=== PATIENT | female | born 1985 | race Caucasian/White ===

== ENCOUNTER 2016-09-22 08:32 | Emergency (ER) | payer SELFPAY ==
--- NOTE | 2016-09-22 10:24 | ER Document Report ---
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 Then both of her arms started to shake. 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 While she was waiting in the emergency department waiting room the chest pain became constant and was told retrosternal. No nausea or vomiting. She developed left arm numbness. No history of reflux. TRAVEL OUTSIDE OF THE [place] IN LAST 30 DAYS: No - Related Data Allergies/Adverse Reactions: No Known Allergies Allergy (Verified 09/22/16 08:41) Past Medical History - General Information source: Patient - Social History Smoking Status: Current Some Day Smoker Chew tobacco use (# tins/day): No Frequency of alcohol use: None Drug Abuse: None Lives with: Spouse/Significant other Family History: CVA, DM, Hyperlipidemia, Hypertension, Thyroid Disfunction. denies: CAD Patient has suicidal ideation: No Patient has homicidal ideation: No Renal/ Medical History: Denies: Hx Peritoneal Dialysis GI Medical History: Reports: Hx Diverticulitis Musculoskeltal Medical History: Reports Hx Arthritis, Reports Hx Musculoskeletal Deformity, Reports Hx Musculoskeletal Trauma Psychiatric Medical History: Reports: Hx Anxiety, Hx Depression Traumatic Medical History: Reports: Hx Fractures - ribs Past Surgical History: Reports: Other - scalp surgery - Immunizations Immunizations up to date: No Hx Diphtheria, Pertussis, Tetanus Vaccination: No Review of Systems - Review of Systems Constitutional: No symptoms reported EENT: No symptoms reported Cardiovascular: See HPI Respiratory: See HPI Gastrointestinal: No symptoms reported Genitourinary: No symptoms reported Female Genitourinary: No symptoms reported Musculoskeletal: No symptoms reported Skin: No symptoms reported Hematologic/Lymphatic: No symptoms reported Neurological/Psychological: No symptoms reported Physical Exam - Vital signs Vitals: Temp Pulse Resp BP Pulse Ox 97.9 F 79 14 114/69 99 09/22/16 08:41 09/22/16 08:41 09/22/16 08:41 09/22/16 08:41 09/22/16 08:41 Interpretation: Normal - General General appearance: Appears well, Alert In distress: None Notes: obese - HEENT Head: Normocephalic, Atraumatic Eyes: Normal Conjunctiva: Normal Pupils: PERRL Neck: Supple. No: Lymphadenopathy - Respiratory Respiratory status: No respiratory distress Chest status: Nontender Breath sounds: Normal Chest palpation: Normal - Cardiovascular Rhythm: Regular Heart sounds: Normal auscultation Murmur: No - Abdominal Inspection: Normal Distension: No distension Bowel sounds: Normal Tenderness: Tender - Epigastrium( brought tears to her eyes) and right upper quadrant Organomegaly: No organomegaly - Back Back: Normal, Nontender. No: CVA tenderness - Extremities General upper extremity: Normal inspection, Nontender, Normal color, Normal ROM , Normal temperature General lower extremity: Normal inspection, Nontender, Normal color, Normal ROM , Normal temperature, Normal weight bearing. No: Divina's sign - Neurological Neuro grossly intact: Yes Cognition: Normal Orientation: AAOx4 Sabrina Coma Scale Eye Opening: Spontaneous [place] Coma Scale Verbal: Oriented [place] Coma Scale Motor: Obeys Commands Sabrina Coma Scale Total: 15 Speech: Normal Motor strength normal: LUE, RUE, LLE, RLE Sensory: Normal - Psychological Associated symptoms: Normal affect, Normal mood - Skin Skin Temperature: Warm Skin Moisture: Dry Skin Color: Normal Skin irregularity: negative: Rash Course - Re-evaluation Re-evalutation: 09/22/16 13:[address] [place] [address] Franco patient can go home. The GI cocktail relieved the epigastric abdominal pain and the chest pain. Dr. Franco and I do not believe this is cardiac in nature. She can follow-up with the family practice doctor. Abdomen is nontender at this time. Labs are negative. KG normal sinus rhythm chest x- ray is negative - Vital Signs Vital signs: Temp Pulse Resp BP Pulse Ox 97.9 F 79 14 114/69 99 09/22/16 08:41 09/22/16 08:41 09/22/16 08:41 09/22/16 08:41 09/22/16 08:41 - Laboratory Result Diagrams: 09/22/16 10:44 09/22/16 10:44 Laboratory results interpreted by me: 09/22/16 09/22/16 09/22/16 10:44 10:44 10:44 WBC 10.8 H Total Protein 8.3 H Urine Blood MODERATE H - EKG Interpretation by Me EKG shows normal: Sinus rhythm Rate: Normal Discharge - Discharge Clinical Impression: chest pain, epigastric abdominal pain, left arm paresthesia Condition: Good Disposition: HOME, SELF-CARE Instructions: Family Physicians / Practices, Prilosec (Acid Pump Inhibitor) ( [facility]), Evaluation of Upper Abdominal Pain ([facility]), Chest Pain of Unclear Cause ([facility] ) Additional Instructions: Return to the emergency room if worse The family practice doctor for follow-up Take [id number] Prilosec 20 mg twice a day Low-fat diet Please complete the patient satisfaction survey if you get one, and return it.. If you do not receive a survey, then you can go to the [facility] website, [email or web address] and place your comments about your very good care. Thank you very much. It was a pleasure being your medical provider today. Forms: Return to Work
[2016-09-22] MEDS ORDERED: LIDOCAINE 2% VISCOUS SOLN 20 ML UDCUP PO ONE (10:27)
[2016-09-22] MEDS ORDERED: MAG HYDROX/AL HYDROX/SIMETH SUSP 30 ML UDCUP PO ONE (10:27)
[2016-09-22 10:59] LABS: ABSOLUTE BASOPHILS # (AUTO) 0.1 10^3/uL (0.0-0.2); ABSOLUTE EOSINOPHILS # (AUTO) 0.3 10^3/uL (0.0-0.6); ABSOLUTE LYMPHOCYTES (AUTO) 3.5 10^3/uL (0.5-4.7); ABSOLUTE MONOCYTES (AUTO) 0.9 10^3/uL (0.1-1.4); ABSOLUTE NEUT (AUTO) 5.9 10^3/uL (1.7-8.2); BASOPHILS % (AUTO) 1.3 % (0-2); EOSINOPHILS % (AUTO) 2.7 % (0-6); HEMATOCRIT 36.6 % (36.0-47.0); HEMOGLOBIN 12.6 g/dL (12.0-15.5); HGB HCT DIFFERENCE 1.2; LYMPHOCYTES % (AUTO) 32.2 % (13-45); MEAN CORPUSCULAR HEMOGLOBIN 30.6 pg (27.0-33.4); MEAN CORPUSCULAR HGB CONC 34.3 g/dL (32.0-36.0); MEAN CORPUSCULAR VOLUME 89 fl (80-97); MONOCYTES % (AUTO) 8.8 % (3-13); RED BLOOD COUNT 4.11 10^6/uL (3.72-5.28); RED CELL DISTRIBUTION WIDTH 13.9 % (11.5-14.0); WHITE BLOOD COUNT 10.8 10^3/uL (4.0-10.5)
[2016-09-22 11:06] LABS: APPEARANCE,URINE SLIGHTLY-CLOUDY; BILIRUBIN,URINE NEGATIVE (NEGATIVE); GLUCOSE, URINE NEGATIVE (NEGATIVE); KETONES,URINE NEGATIVE (NEGATIVE); LEUKOCYTE ESTERASE,URINE NEGATIVE (NEGATIVE); NITRITE,URINE NEGATIVE (NEGATIVE); PROTEIN,URINE NEGATIVE (NEGATIVE); URINE SPECIFIC GRAVITY 1.025; UROBILINOGEN,URINE NEGATIVE mg/dL (<2.0)
[2016-09-22 11:16] LABS: ALANINE AMINOTRANSFERASE 26 U/L (9-52); ALBUMIN 4.3 g/dL (3.5-5.0); ALKALINE PHOSPHATASE 81 U/L (38-126); ANION GAP 11 (5-19); ASPARTATE AMINO TRANSFERASE 20 U/L (14-36); BILIRUBIN,DIRECT 0.2 mg/dL (0.0-0.4); BILIRUBIN,TOTAL 0.4 mg/dL (0.2-1.3); BLOOD UREA NITROGEN 11 mg/dL (7-20); CALCIUM 10.2 mg/dL (8.4-10.2); CARBON DIOXIDE 23 mmol/L (22-30); CHLORIDE 107 mmol/L (98-107); CREATININE RESULT 0.56 mg/dL (0.52-1.25); GLUCOSE 94 mg/dL (75-110); LIPASE 80.9 U/L (23-300); POTASSIUM 4.6 mmol/L (3.6-5.0); SODIUM 141.1 mmol/L (137-145); TOTAL PROTEIN 8.3 g/dL (6.3-8.2)
[2016-09-22 11:18] LABS: URINE BARBITURATES SCREEN NEGATIVE; URINE METHADONE SCREEN NEGATIVE; URINE OPIATES LOW NEGATIVE; URINE PHENCYCLIDINE SCREEN NEGATIVE
--- NOTE | 2016-09-22 13:14 | EKG REPORT ---
SEVERITY:- NORMAL ECG - SINUS RHYTHM : Confirmed by: Lane Peterson MD 22-Sep-2016 13:14:32
[2016-09-22 13:47] VITALS: BP 120/71
== END 2016-09-22 13:59 | disposition home or self-care (01) ==
LOC: ER 08:32
DX: R07.9 Chest pain, unspecified (principal); R10.13 Epigastric pain; R20.0 Anesthesia of skin; R06.02 Shortness of breath; R10.811 Right upper quadrant abdominal tenderness; R10.816 Epigastric abdominal tenderness; F17.200 Nicotine dependence, unspecified, uncomplicated; Z79.3 Long term (current) use of hormonal contraceptives
CPT/HCPCS: 93005; 99285; 36415; 87086; 83690; 84703; 85025; 80053; 81001; 80307; 71020; 93010; J3490

== ENCOUNTER 2016-10-28 17:04 | Emergency (ER) | payer BC ==
[2016-10-28] MEDS ORDERED: KETOROLAC TROMETHAMINE 60 MG/2 ML SDV IM ONE (19:19)
--- NOTE | 2016-10-28 19:19 | ER Document Report ---
ED General - General Mode of Arrival: Ambulatory Information source: Patient TRAVEL OUTSIDE OF THE [place] IN LAST 30 DAYS: No - HPI Onset: Other - Refer to history of present illness note Similar symptoms previously: No Recently seen / treated by doctor: No - General Chief Complaint: Diarrhea Stated Complaint: DIARRHEA, BACK PAIN Notes: Patient is a 31-year-old female patient emergency department for headache symptoms, nausea, diarrhea, and low back pain. Patient states that her symptoms onset last night. Patient denies any recent injuries or trauma to her back. Patient denies any steroids use. Patient states that she has a history of chronic back pain, but has not seen a physician for this. Patient states that she is on control and taking Tylenol for the pain with no relief. Patient states her last menstrual period ended today. Patient denies any vaginal discharge or bleeding, dysuria or history of kidney stones. Patient has no known allergies. Patient does not have a primary care physician. (GORDON KAUFMAN) - Related Data Allergies/Adverse Reactions: No Known Allergies Allergy (Verified 10/28/16 17:19) Past Medical History - General Information source: Patient - Social History Smoking Status: Current Every Day Smoker Chew tobacco use (# tins/day): No Frequency of alcohol use: None Drug Abuse: None Family History: CVA, DM, Hyperlipidemia, Hypertension, Thyroid Disfunction Patient has suicidal ideation: No Patient has homicidal ideation: No GI Medical History: Reports: Hx Diverticulitis Musculoskeltal Medical History: Reports Hx Arthritis, Reports Hx Musculoskeletal Deformity, Reports Hx Musculoskeletal Trauma Psychiatric Medical History: Reports: Hx Anxiety, Hx Depression Traumatic Medical History: Reports: Hx Fractures - ribs Past Surgical History: Reports: Other - scalp surgery - Immunizations Immunizations up to date: No Hx Diphtheria, Pertussis, Tetanus Vaccination: No Review of Systems - Review of Systems Constitutional: No symptoms reported EENT: See HPI Cardiovascular: No symptoms reported Respiratory: No symptoms reported Gastrointestinal: See HPI, Diarrhea, Nausea Genitourinary: No symptoms reported Female Genitourinary: No symptoms reported Musculoskeletal: See HPI, Back pain Skin: No symptoms reported Hematologic/Lymphatic: No symptoms reported Neurological/Psychological: No symptoms reported -: Yes All other systems reviewed and negative Physical Exam - Vital signs Interpretation: Normal - General General appearance: Appears well, Alert In distress: Mild - HEENT Head: Normocephalic, Atraumatic Eyes: Normal Pupils: PERRL Mucous membranes: Moist - Respiratory Respiratory status: No respiratory distress Chest status: Nontender Breath sounds: Normal Chest palpation: Normal - Cardiovascular Rhythm: Regular Heart sounds: Normal auscultation Murmur: No - Abdominal Inspection: Normal Distension: No distension Bowel sounds: Normal Tenderness: Nontender Organomegaly: No organomegaly - Back Back: Normal, Tender - paralumbar and thoracic tenderness with spasm - Extremities General upper extremity: Normal inspection, Normal ROM, Normal strength General lower extremity: Normal inspection, Normal ROM, Normal strength - Neurological Neuro grossly intact: Yes Cognition: Normal Orientation: AAOx4 Sabrina Coma Scale Eye Opening: Spontaneous [place] Coma Scale Verbal: Oriented [place] Coma Scale Motor: Obeys Commands [place] Coma Scale Total: 15 Speech: Normal - Psychological Associated symptoms: Normal affect, Normal mood - Skin Skin Temperature: Warm Skin Moisture: Dry Course - Re-evaluation Re-evalutation: 10/28/16 19:20 Patient presents emergency Department with a chief complaint of nonbloody diarrhea that started last night low back pain. Patient has a history of chronic long-standing chronic back pain for which she currently does not see a primary care physician she's never had an MRI diagnosis her surgery. She says she has back pain every day of her life. She describes his paralumbar not midline no acute numbness tingling weakness loss of bowel or bladder function and no recent injury. She is ambulatory on arrival. Denies a chance of being denies any burning with urination blood in the urinate pelvic pain or vaginal discharge. No fevers chills vomiting or abdominal pain. On examination well-appearing nontoxic little tachycardic on examination HEENT heart lungs are normal. Abdomen is soft no tenderness guarding rebound rigidity she has no midline cervical thoracic or lumbar tenderness Paralumbar muscular skeletal tenderness and spasm bilaterally negative bilateral straight leg raise test. Pulses sensation motor intact no abnormal reflexes or decreased strength. Patient is ambulatory upon her heels and toes without any difficulty. Going give her shot of Toradol check her urine. (SELENA TORRE) - Vital Signs Vital signs: Temp Pulse Resp BP Pulse Ox 97.9 F 77 20 126/77 H 98 10/28/16 21:10 10/28/16 21:10 10/28/16 21:10 10/28/16 21:10 10/28/16 21:10 - Laboratory Laboratory results interpreted by me: 10/28/16 19:35 Urine Protein 30 H Urine Blood LARGE H Discharge - Discharge Clinical Impression: Viral syndrome, Elevated blood pressure reading Low back pain Qualifiers: Chronicity: unspecified Back pain laterality: bilateral Sciatica presence: without sciatica Qualified Code(s): M54.5 - Low back pain Condition: Stable Disposition: HOME, SELF-CARE Instructions: Viral Syndrome ([facility]) Additional Instructions: HIGH BLOOD PRESSURE, NOT TREAT: When your blood pressure was taken today it was elevated. We do not think you need to have your blood pressure treated today. Sometimes, stress or illness causes a temporary elevation of your blood pressure. We suggest that you get your blood pressure measured again during the next few days to see if this elevated blood pressure is more than a temporary abnormality. If your blood pressure is greater than 150/90 on each occasion, you must have treatment. Some simple things you can do to help are: If you have blood pressure medicine but aren't using it regularly, start taking it again. Get some aerobic exercise for at least 20 minutes on a daily basis. (See your doctor before beginning a new exercise program.) Eat a low-fat diet. Lose excess weight. Avoid salty foods and avoid adding salt to any of the foods you eat. Avoid diet pills, decongestants, "energizing" herbs, and other medicines that elevate blood pressure. If left untreated, hypertension greatly enhances your risk for developing heart disease and strokes. Please don't ignore this problem. LOW BACK PAIN: Three out of every four people will have an episode of disabling back pain during their lifetime. Most commonly the pain is due to straining of the muscles and ligaments in the low back. Usual treatment includes: (1) Rest on a firm surface. Avoid lying on your stomach. (2) Ice pack the painful area. After a few days, gentle heat may be used intermittently to relax the area, or ice packs can be continued. (3) Medication may be needed -- muscle relaxers and antiinflammatory medicines are commonly used. (4) As the back improves, exercises are prescribed to strengthen the back and abdominal muscles. Your doctor will advise you on the proper care for your back at each stage in your recovery. You may be better in a few days -- or healing may take several weeks. If new symptoms of a "herniated disc" (radiation of pain, numbness, or tingling down the back of the leg or weakness in the leg) occur, you should be re-examined. Further testing may be necessary. FOLLOW-UP CARE: If you have been referred to a physician for follow-up care, call the physician s office for an appointment as you were instructed or within the next two days. If you experience worsening or a significant change in your symptoms, notify the physician immediately or return to the Emergency Department at any time for re-evaluation. Forms: Return to Work Scribe Attestation: 10/31/16 03:06 i personally performed the services described in the documentation, reviewed the documentation recorded by the scribe in my presence and it accurately and completely records my words and actions (SELENA TORRE) Scribe Documentation - Scribe Written by Rupali:: Gordon Kaufman 10/28/16 19:50 acting as scribe for :: Ruben
[2016-10-28 19:51] LABS: APPEARANCE,URINE SLIGHTLY-CLOUDY; BILIRUBIN,URINE NEGATIVE (NEGATIVE); GLUCOSE, URINE NEGATIVE (NEGATIVE); KETONES,URINE NEGATIVE (NEGATIVE); LEUKOCYTE ESTERASE,URINE NEGATIVE (NEGATIVE); NITRITE,URINE NEGATIVE (NEGATIVE); PROTEIN,URINE 30 mg/dL (NEGATIVE); URINE SPECIFIC GRAVITY 1.025; UROBILINOGEN,URINE NEGATIVE mg/dL (<2.0)
[2016-10-28 20:01] LABS: URINE BARBITURATES SCREEN NEGATIVE; URINE METHADONE SCREEN NEGATIVE; URINE OPIATES LOW NEGATIVE; URINE PHENCYCLIDINE SCREEN NEGATIVE
--- NOTE | 2016-10-28 20:40 | ER Document Report ---
ED General - General Chief Complaint: Diarrhea Stated Complaint: DIARRHEA, BACK PAIN Mode of Arrival: Ambulatory Information source: Patient Notes: This is a 31-year-old female who presents to the ER for concern of diarrhea that started yesterday. She states that she has had upper respiratory symptoms including mild congestion and dry cough for 2 days. No fevers or chills. She developed one episode of diarrhea yesterday and one episode today. She works at [employer] and she was told to come get a note for work. She denies any abdominal pain. She has had no fevers or chills. 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 She also states that she has low back pain today, across her lower back. No radiation. No weakness, paresthesias, bowel or bladder symptoms. TRAVEL OUTSIDE OF THE [place] IN LAST 30 DAYS: No - Related Data Allergies/Adverse Reactions: No Known Allergies Allergy (Verified 10/28/16 17:19) Past Medical History - General Information source: Patient - Social History Smoking Status: Current Every Day Smoker Chew tobacco use (# tins/day): No Frequency of alcohol use: None Drug Abuse: None Family History: CVA, DM, Hyperlipidemia, Hypertension, Thyroid Disfunction Patient has suicidal ideation: No Patient has homicidal ideation: No Renal/ Medical History: Denies: Hx Peritoneal Dialysis GI Medical History: Reports: Hx Diverticulitis Musculoskeltal Medical History: Reports Hx Arthritis, Reports Hx Musculoskeletal Deformity, Reports Hx Musculoskeletal Trauma Psychiatric Medical History: Reports: Hx Anxiety, Hx Depression Traumatic Medical History: Reports: Hx Fractures - ribs Past Surgical History: Reports: Other - scalp surgery - Immunizations Immunizations up to date: No Hx Diphtheria, Pertussis, Tetanus Vaccination: No Review of Systems - Review of Systems Notes: REVIEW OF SYSTEMS: CONSTITUTIONAL : Denies fever, chills, or sweats. Denies recent illness. EENT: Denies eye, ear, throat, or mouth pain or symptoms. Denies nasal or sinus congestion. CARDIOVASCULAR: Denies chest pain. RESPIRATORY: URI as per history of present illnes. Denies shortness of breath, difficulty breathing, or wheezing. GASTROINTESTINAL: Denies abdominal pain. Denies nausea, vomiting. Diarrhea as per history of present illness GENITOURINARY: Denies difficulty urinating, painful urination, burning, frequency, or blood in urine. FEMALE GENITOURINARY: Denies vaginal bleeding, abnormal or irregular periods. LMP: ended yesterday MUSCULOSKELETAL: Denies neck or back pain or joint pain or swelling. SKIN: Denies rash or skin lesions. HEMATOLOGIC : Denies easy bruising or bleeding. LYMPHATIC: Denies swollen, enlarged glands. NEUROLOGICAL: Denies altered mental status or loss of consciousness. Denies headache. PSYCHIATRIC: Denies anxiety or stress or depression. ALL OTHER SYSTEMS REVIEWED AND NEGATIVE. Physical Exam - Vital signs Vitals: Temp Pulse Resp BP Pulse Ox 98.5 F 118 H 18 144/90 H 95 10/28/16 17:19 10/28/16 17:19 10/28/16 17:19 10/28/16 17:19 10/28/16 17:19 - Notes Notes: PHYSICAL EXAMINATION: GENERAL: Very Well-appearing, obese female, pleasant and conversant, and in no acute distress. HEAD: Atraumatic, normocephalic. EYES: Pupils equal round and reactive to light, extraocular movements intact, sclera anicteric, conjunctiva are normal. ENT: nares patent, oropharynx clear without exudates. Moist mucous membranes. NECK: Normal range of motion, supple without lymphadenopathy LUNGS: Breath sounds clear to auscultation bilaterally and equal. No wheezes rales or rhonchi. HEART: Regular rate and rhythm without murmurs ABDOMEN: Soft, nontender, normoactive bowel sounds. No guarding, no rebound. No masses appreciated. EXTREMITIES: Normal range of motion, no pitting or edema. No cyanosis. BACK: no midline vertebral TTP, mild bilateral paralumbar tenderness to palpation. No CVA tenderness to palpation NEUROLOGICAL: Cranial nerves grossly intact. Normal speech, normal gait. Normal sensory, motor, and reflex exams. PSYCH: Normal mood, normal affect. SKIN: Warm, Dry, normal turgor, no rashes or lesions noted. Course - Re-evaluation Re-evalutation: 10/28/16 20:44 Patient appears well. I suspect that the microscopic hematuria is secondary to the fact that her period ended yesterday. She does not present with symptoms consistent with renal colic or ureterolithiasis. - Vital Signs Vital signs: Temp Pulse Resp BP Pulse Ox 98.5 F 118 H 18 144/90 H 95 10/28/16 17:19 10/28/16 17:19 10/28/16 17:19 10/28/16 17:19 10/28/16 17:19 - Laboratory Laboratory results interpreted by me: 10/28/16 19:35 Urine Protein 30 H Urine Blood LARGE H Discharge - Discharge Clinical Impression: Viral syndrome, Elevated blood pressure reading Low back pain Qualifiers: Chronicity: unspecified Back pain laterality: bilateral Sciatica presence: without sciatica Qualified Code(s): M54.5 - Low back pain Condition: Stable Disposition: HOME, SELF-CARE Instructions: Viral Syndrome ([facility]) Additional Instructions: HIGH BLOOD PRESSURE, NOT TREAT: When your blood pressure was taken today it was elevated. We do not think you need to have your blood pressure treated today. Sometimes, stress or illness causes a temporary elevation of your blood pressure. We suggest that you get your blood pressure measured again during the next few days to see if this elevated blood pressure is more than a temporary abnormality. If your blood pressure is greater than 150/90 on each occasion, you must have treatment. Some simple things you can do to help are: If you have blood pressure medicine but aren't using it regularly, start taking it again. Get some aerobic exercise for at least 20 minutes on a daily basis. (See your doctor before beginning a new exercise program.) Eat a low-fat diet. Lose excess weight. Avoid salty foods and avoid adding salt to any of the foods you eat. Avoid diet pills, decongestants, "energizing" herbs, and other medicines that elevate blood pressure. If left untreated, hypertension greatly enhances your risk for developing heart disease and strokes. Please don't ignore this problem. LOW BACK PAIN: Three out of every four people will have an episode of disabling back pain during their lifetime. Most commonly the pain is due to straining of the muscles and ligaments in the low back. Usual treatment includes: (1) Rest on a firm surface. Avoid lying on your stomach. (2) Ice pack the painful area. After a few days, gentle heat may be used intermittently to relax the area, or ice packs can be continued. (3) Medication may be needed -- muscle relaxers and antiinflammatory medicines are commonly used. (4) As the back improves, exercises are prescribed to strengthen the back and abdominal muscles. Your doctor will advise you on the proper care for your back at each stage in your recovery. You may be better in a few days -- or healing may take several weeks. If new symptoms of a "herniated disc" (radiation of pain, numbness, or tingling down the back of the leg or weakness in the leg) occur, you should be re-examined. Further testing may be necessary. FOLLOW-UP CARE: If you have been referred to a physician for follow-up care, call the physician s office for an appointment as you were instructed or within the next two days. If you experience worsening or a significant change in your symptoms, notify the physician immediately or return to the Emergency Department at any time for re-evaluation. Forms: Return to Work
[2016-10-28 21:20] VITALS: BP 126/77
== END 2016-10-28 21:15 | disposition home or self-care (01) ==
LOC: ER 17:04
DX: M54.5 Low back pain (principal); B34.9 Viral infection, unspecified; R19.7 Diarrhea, unspecified; R05 Cough; R03.0 Elevated blood-pressure reading, without diagnosis of hypertension; E66.9 Obesity, unspecified; Z68.38 Body mass index [BMI] 38.0-38.9, adult; F17.200 Nicotine dependence, unspecified, uncomplicated; Z87.19 Personal history of other diseases of the digestive system
CPT/HCPCS: 99284; 96372; 81001; 80307; J1885

== ENCOUNTER 2016-11-30 17:47 | Emergency (ER) | payer BC ==
[2016-11-30] MEDS ORDERED: IBUPROFEN 800 MG TABLET PO ONE (20:01)
[2016-11-30] MEDS ORDERED: FAMOTIDINE 20 MG TABLET PO ONE (20:01)
[2016-11-30] MEDS ORDERED: PREDNISONE 20 MG TABLET PO ONE (20:01)
--- NOTE | 2016-11-30 20:07 | ER Document Report ---
ED Skin Rash/Insect Bite/Abscs - General Chief Complaint: Skin Problem Stated Complaint: SKIN PROBLEM Time Seen by Provider: 11/30/16 19:54 Mode of Arrival: Ambulatory Information source: Patient Notes: 31-year-old female presents to ED for chronic back pain that has been hurting today and hives to bilateral arms and legs. States she took some allergy pills that did not help. TRAVEL OUTSIDE OF THE [place] IN LAST 30 DAYS: No - HPI Patient complains to provider of: Skin rash/lesion, Other - Low back pain Onset: This morning Onset/Duration: Intermittent Quality of pain: Other - Spasms in her back Severity: Severe Pain Level: 5 Skin Character: Rash Quality of rash: Itchy Identify cause: No Exacerbated by: Denies Relieved by: Denies Similar symptoms previously: Yes Recently seen / treated by doctor: No - Related Data Allergies/Adverse Reactions: No Known Allergies Allergy (Verified 10/28/16 17:19) Past Medical History - General Information source: Patient - Social History Smoking Status: Current Every Day Smoker Cigarette use (# per day): Yes - Half-pack per day Chew tobacco use (# tins/day): No Smoking Education Provided: Yes - Less than 2 minutes Frequency of alcohol use: Occasional Drug Abuse: None Occupation: [employer] Lives with: Spouse/Significant other Family History: CAD, CVA, DM, Hyperlipidemia, Hypertension, Malignancy, Thyroid Disfunction Patient has suicidal ideation: No Patient has homicidal ideation: No - Past Medical History Cardiac Medical History: Reports: None Pulmonary Medical History: Reports: Hx Asthma - As a child none now EENT Medical History: Reports: None Neurological Medical History: Reports: None Endocrine Medical History: Reports: None Renal/ Medical History: Reports: None Malignancy Medical History: Reports: None GI Medical History: Reports: Hx Diverticulitis Musculoskeltal Medical History: Reports Hx Arthritis, Reports Hx Musculoskeletal Deformity, Reports Hx Musculoskeletal Trauma Skin Medical History: Reports None Psychiatric Medical History: Reports: Hx Anxiety, Hx Depression Traumatic Medical History: Reports: Hx Fractures - ribs Infectious Medical History: Reports: None Past Surgical History: Reports: Hx Oral Surgery - [place] teeth, Other - scalp surgery attached as a child large dog tore off to 60% - Immunizations Immunizations up to date: No Hx Diphtheria, Pertussis, Tetanus Vaccination: No Review of Systems - Review of Systems Constitutional: No symptoms reported EENT: No symptoms reported Cardiovascular: No symptoms reported Respiratory: No symptoms reported Gastrointestinal: No symptoms reported Genitourinary: No symptoms reported Female Genitourinary: No symptoms reported Musculoskeletal: Back pain Skin: Rash Hematologic/Lymphatic: No symptoms reported Neurological/Psychological: No symptoms reported -: Yes All other systems reviewed and negative Physical Exam - Vital signs Vitals: Temp Pulse Resp BP Pulse Ox 98.1 F 99 16 142/78 H 97 11/30/16 18:33 11/30/16 18:33 11/30/16 18:33 11/30/16 18:33 11/30/16 18:33 Interpretation: Normal - General General appearance: Appears well, Alert - HEENT Head: Normocephalic, Atraumatic Eyes: Normal Pupils: PERRL - Respiratory Respiratory status: No respiratory distress Chest status: Nontender Breath sounds: Normal Chest palpation: Normal - Cardiovascular Rhythm: Regular Heart sounds: Normal auscultation Murmur: No - Abdominal Inspection: Normal Distension: No distension Bowel sounds: Normal Tenderness: Nontender Organomegaly: No organomegaly - Back Back: Normal, Tender - Muscle. No: Deformity/step-off, CVA tenderness, Vertebra tenderness, Scars, Scoliosis, Wounds - Extremities General upper extremity: Normal inspection, Nontender, Normal color, Normal ROM , Normal temperature General lower extremity: Normal inspection, Nontender, Normal color, Normal ROM , Normal temperature, Normal weight bearing. No: Divina's sign - Neurological Neuro grossly intact: Yes Cognition: Normal Orientation: AAOx4 [place] Coma Scale Eye Opening: Spontaneous [place] Coma Scale Verbal: Oriented [place] Coma Scale Motor: Obeys Commands [place] Coma Scale Total: 15 Speech: Normal Motor strength normal: LUE, RUE, LLE, RLE Sensory: Normal - Psychological Associated symptoms: Normal affect, Normal mood - Skin Skin Temperature: Warm Skin Moisture: Dry Skin Color: Normal Skin irregularity: Rash Location of irregularity: Extremities - Bilateral arm and leg Character of irregularity: Erythematous, Urticarial Course - Re-evaluation Re-evalutation: 11/30/16 20:08 Patient treated with prednisone and Pepcid and ibuprofen. Patient sent home with a prescription for prednisone for 2 days. Patient instructed to use ibuprofen and Benadryl and [id number] Pepcid or Zantac for her hives and back pain. Patient also given instructions on ice and warm packs as well as back exercises. Patient has no signs or symptoms of cauda equina. She has full range of motion to her leg no loss of sensation no loss of motion no loss of control of bowel or bladder. Patient to follow-up with primary doctor - Vital Signs Vital signs: Temp Pulse Resp BP Pulse Ox 98.1 F 99 16 142/78 H 97 11/30/16 18:33 11/30/16 18:33 11/30/16 18:33 11/30/16 18:33 11/30/16 18:33 Discharge - Discharge Clinical Impression: Contact dermatitis Qualifiers: Contact dermatitis type: unspecified Contact dermatitis trigger: unspecified trigger Qualified Code(s): L25.9 - Unspecified contact dermatitis, unspecified cause Chronic back pain Qualifiers: Back pain location: low back pain Back pain laterality: bilateral Sciatica presence: without sciatica Qualified Code(s): M54.5 - Low back pain; G89.29 - Other chronic pain Condition: Stable Disposition: HOME, SELF-CARE Instructions: Family Physicians / Practices Additional Instructions: Allergic Contact Dermatitis You have a local allergic reaction, called contact dermatitis. This an allergy to something in contact with your skin. Poison julia, jewelry, soaps, perfumes, and chemicals are common causes. Typically, an itchy rash develops a few days after the exposure. If the reaction is severe, blisters may develop. Two to three weeks may be required for healing. Generally, treatment consists of: (1) a thorough washing with soap to remove the offending substance, (2) application of a cortisone cream, and (3) antihistamines for itching. If the reaction is particularly severe, further measures may be required. These can include soaking in epsom salts or Nasrin's solution, and oral cortisone medications. Call the doctor if the rash worsens despite treatment, or if signs of infection occur such as spreading redness, red streaks, swollen glands, swelling , or fever. Chronic Back Pain Chronic back pain (pain persisting longer than three months) is a common problem. A medical evaluation can look for herniated disc, arthritis, osteoporosis, tumors, and infections. But at least half the time, there's no obvious treatable cause. Anxiety and depression tend to worsen back pain. Ibuprofen or other anti-inflammatory medicine can help. A heating pad, used for 15-20 minutes at a time, can ease pain. For this type of back pain, narcotic medicines should be avoided. Muscle relaxers are rarely helpful unless you're having spasms. Activity is important. Find an aerobic exercise program that your back can tolerate. Too much rest makes back pain worse. Specific back exercises are usually prescribed to strengthen the back and abdominal muscles. Often, a physical therapist can help. Avoid heavy lifting, working while bent over, or standing with both knees straight. Most back pain patients do better with a firm mattress. If new symptoms of a "herniated disc" (radiation of pain, numbness, or tingling down the back of the leg or weakness in the leg) occur, you should be re-examined. STEROID MEDICATION: You have been given a medicine of the cortisone/steroid class. This medication is used to control inflammation or allergy. It is usually only given for a short period of time, until the acute process subsides. There are usually no side effects from short-term use of cortisone-like medications. Some persons feel an increased sense of well-being and are not sleepy at bedtime. Long-term use of cortisone medications is best avoided, unless required for a severe condition. If your condition does not remit, or relapses after the course of corticosteroid medication, you should consult your physician. ACID-SUPPRESSING MEDICATION: You have a prescription for medicine which reduces the stomach's secretion of acid. Examples include Zantac, Tagament, and Pepcid. These drugs are often used to allow healing of ulcers or esophagitis. They may be needed to prevent recurrence of ulcers in some patients, or to prevent damage from acid reflux in the esophagus. Take all medication as prescribed, even after the pain is gone. Regular antacids may be added as needed if you have symptoms while taking this medicine. These medications sometimes are prescribed for allergic reactions because they have anti-histaminic effects and relieve the rash and itching of the reaction. There are usually no side effects from this medication. But, in rare cases and particularly in the elderly, serious problems can occur. Contact your doctor if there is fever, rash, hallucinations, confusion, or unusual bruising. Contact your doctor at once if you develop lightheadedness, black or bloody stool, or bloody vomitus. USE OF DIPHENHYDRAMINE: The use of diphenhydramine (Benadryl) has been recommended to control allergic symptoms. The 25 mg strength is available over- the-counter, as well as the elixir. This antihistamine is used for many symptoms. It's useful for itching, watering eyes and nose, allergic swelling, hives, and insect stings. The medication can be repeated four times daily. Age Elixir (12.5 mg/tsp) 25 mg pill 2-3 yr 1/2 tsp 4-8 yr 1 tsp 9-14 yr 2 tsp one tab adult 1-2 tabs Antihistamines may cause drowsiness, especially with the first dose. Do not operate machinery or drive while under the effects of the medication. Do not combine the medication with alcohol, or with any other medication without talking to your doctor. USE OF [id number] IBUPROFEN: Ibuprofen (Advil, Nuprin, Medipren, Motrin IB) is a medication for fever and pain control. In addition, it has anti- inflammatory effects which may be beneficial, especially in the treatment of injuries. It's best to take ibuprofen with food. Persons with ulcer disease or allergy to aspirin should notify their physician of this before taking ibuprofen. Ibuprofen can be given every four to six hours, for a total of four doses daily. Age Pain or fever dose Antiinflammatory dose 6-8 yr 200 mg (1 tab) 200 mg (1 tab) 9-11 yr 200 mg (1 tab) 200-400 mg (1-2 tab) 11-14 yr 200-400 mg (1-2 tab) 400 mg (2 tab) 15-adult 400 mg (2 tab) 600 mg (3 tab) FOLLOW-UP CARE: If you have been referred to a physician for follow-up care, call the physician s office for an appointment as you were instructed or within the next two days. If you experience worsening or a significant change in your symptoms, notify the physician immediately or return to the Emergency Department at any time for re-evaluation. Prescriptions: Prednisone [Deltasone 20 mg Tablet] 2 tab PO DAILY 2 Days Forms: Elevated Blood Pressure, Smoking Cessation Education, Return to Work
[2016-11-30 20:53] VITALS: BP 113/75
== END 2016-11-30 20:53 | disposition home or self-care (01) ==
LOC: ER 17:47
DX: L25.9 Unspecified contact dermatitis, unspecified cause (principal); G89.29 Other chronic pain; M54.5 Low back pain; R25.2 Cramp and spasm; F17.210 Nicotine dependence, cigarettes, uncomplicated; Z71.6 Tobacco abuse counseling
CPT/HCPCS: 99283; J7512

== ENCOUNTER 2017-05-18 17:00 | Emergency (ER) | payer SELFPAY ==
--- NOTE | 2017-05-18 18:55 | ER Document Report ---
ED General - General Chief Complaint: Ankle Pain Stated Complaint: SWOLLEN ANKLES,PAIN IN LEGS Time Seen by Provider: 05/18/17 18:48 Notes: Patient is a 31-year-old female without past medical history presents with 1 week of bilateral ankle swelling but much worse in the right with associated severe, constant throbbing pain to the right ankle. She states that she stands at work frequently and that walking around worsens the pain in the right ankle. She states raising the ankle up or keeping off of it reduces the pain. She has not had a history of similar symptoms in the past. She denies any injury to the area. Has not seen a primary care doctor regarding today's concerns. She has no history of DVT or pulmonary embolus. She does not take estrogen or any form of control. TRAVEL OUTSIDE OF THE [place] IN LAST 30 DAYS: No - Related Data Allergies/Adverse Reactions: No Known Allergies Allergy (Verified 05/18/17 17:38) Past Medical History - General Information source: Patient - Social History Smoking Status: Never Smoker Frequency of alcohol use: None Drug Abuse: None Lives with: Spouse/Significant other Family History: CAD, CVA, DM, Hyperlipidemia, Hypertension, Malignancy, Thyroid Disfunction Pulmonary Medical History: Reports: Hx Asthma - As a child none now Renal/ Medical History: Denies: Hx Peritoneal Dialysis GI Medical History: Reports: Hx Diverticulitis Musculoskeltal Medical History: Reports Hx Arthritis, Reports Hx Musculoskeletal Deformity, Reports Hx Musculoskeletal Trauma Psychiatric Medical History: Reports: Hx Anxiety, Hx Depression Traumatic Medical History: Reports: Hx Fractures - ribs Past Surgical History: Reports: Hx Oral Surgery - [place] teeth, Other - scalp surgery attached as a child large dog tore off to 60% - Immunizations Immunizations up to date: No Hx Diphtheria, Pertussis, Tetanus Vaccination: No Review of Systems - Review of Systems Notes: Constitutional: Negative for fever. HENT: Negative for sore throat. Eyes: Negative for visual changes. Cardiovascular: Negative for chest pain. Respiratory: Negative for shortness of breath. Gastrointestinal: Negative for abdominal pain, vomiting or diarrhea. Genitourinary: Negative for dysuria. Musculoskeletal: Positive for right ankle pain and swelling Skin: Negative for rash. Neurological: Negative for headaches, weakness or numbness. 10 point ROS negative except as marked above and in HPI. Physical Exam - Vital signs Vitals: Temp Pulse Resp BP Pulse Ox 98.3 F 93 16 130/93 H 99 05/18/17 17:35 05/18/17 17:35 05/18/17 17:35 05/18/17 17:35 05/18/17 17:35 Interpretation: Normal Notes: PHYSICAL EXAMINATION: GENERAL: Well-appearing, well-nourished and in no acute distress. HEAD: Atraumatic, normocephalic. EYES: sclera anicteric, conjunctiva are normal. ENT: Moist mucous membranes. NECK: Normal range of motion LUNGS: Normal work of breathing HEART: 2+ radial pulses bilaterally EXTREMITIES: Mild swelling of the right ankle most prominent over the lateral malleolus and over the base of the right foot. Pain with squeeze of the right calf. Left ankle unremarkable. NEUROLOGICAL: No focal neurological deficits. Moves all extremities spontaneously and on command. PSYCH: Normal mood, normal affect. SKIN: Warm, Dry, normal turgor, no rashes or lesions noted. Course - Re-evaluation Re-evalutation: 05/18/17 19:09 Patient presents with right ankle ankle pain as well as calf pain more normal on the right versus left as she does not have symptoms on the left. She denies any risk factors for DVT or pulmonary emboli with this to be the most likely threatening diagnosis that be considered. She is a positive Bullard's sign. Will therefore proceed with a venous Doppler study of the bilateral lower extremities to evaluate for DVT for which I have an overall low clinical index of suspicion. Alternative considerations would be osteoarthritis but he has a right ankle as patient does note that she frequently has popping and cracking of the ankle and walking up steps. Less likely still in considerations would be autoimmune conditions such as lupus or rheumatoid arthritis although again I would suspect a more diffuse picture than just localization to her bilateral lower extremities. Will obtain an x-ray of the right ankle to assess for a severe degree of osteoarthritis, venous Doppler study, and if these are unremarkable plan for discharge home with outpatient follow-up. 05/18/17 20:26 Venous Doppler does not show any evidence of a DVT. The x-ray of the right ankle does show prominent heel spur likely the source of patient's ankle pain and swelling. An David wrap has been applied and have encouraged her to follow- up with podiatry. At this time will discharge with return precautions and follow-up recommendations. Verbal discharge instructions given a the bedside and opportunity for questions given. Medication warnings reviewed. Patient is in agreement with this plan and has verbalized understanding of return precautions and the need for primary care follow-up in the next 24-72 hours. - Vital Signs Vital signs: Temp Pulse Resp BP Pulse Ox 98.3 F 93 16 130/93 H 99 05/18/17 17:35 05/18/17 17:35 05/18/17 17:35 05/18/17 17:35 05/18/17 17:35 - Diagnostic Test Radiology reviewed: Image reviewed, Reports reviewed Radiology results interpreted by me: 05/18/17 20:52 Right ankle: No acute fracture or dislocation Discharge - Discharge Clinical Impression: Swelling of joint, ankle, right Right ankle pain Qualifiers: Chronicity: acute Qualified Code(s): M25.571 - Pain in right ankle and joints of right foot Condition: Good Disposition: HOME, SELF-CARE Additional Instructions: Your ultrasound is normal and does not show any evidence of a clot. Your x-ray does show a large heel spur on the right which is likely cause of your pain and swelling. Take ibuprofen 600 mg every 6 hours as needed for discomfort. Follow -up with the smoking pipe coater at your earliest ability. Return for any additional concerns you may have. Forms: Return to Work
[2017-05-18] MEDS ORDERED: IBUPROFEN 600 MG TABLET PO ONE (19:06)
--- NOTE | 2017-05-18 19:32 | RADIOLOGY REPORT (SQ) ---
EXAM DESCRIPTION: ANKLE RIGHT COMPLETE COMPLETED DATE/TIME: 05/18/2017 7:22 pm REASON FOR STUDY: ankle swelling COMPARISON: None. NUMBER OF VIEWS: Three views. TECHNIQUE: AP, lateral, and oblique without weight bearing radiographic images acquired of the right ankle. LIMITATIONS: None. FINDINGS: MINERALIZATION: Normal. BONES: No acute fracture or dislocation. No worrisome bone lesions. Prominent plantar calcaneal spur. JOINTS: No effusions. SOFT TISSUES: No soft tissue swelling. No foreign body. OTHER: No other significant finding. IMPRESSION: PROMINENT HEEL SPUR. NO OTHER SIGNIFICANT FINDINGS. TECHNICAL DOCUMENTATION: JOB ID: [id number] [employer]- All Rights Reserved
[2017-05-18 21:03] VITALS: BP 124/76
--- NOTE | 2017-05-19 08:01 | XCELERA REPORT ---
[address] [address] Lower Extremity Venous Evaluation Name: KIMBERLEY RANDLE Age: 31 yrs Gender: Female : 1985 Patient Status: Emergency Patient Location: ER Study Date: 05/18/2017 07:38 PM Procedure: Color flow and duplex imaging bilaterally of the veins of the lower extremities as well as the Common Femoral veins. Reason For Study: eval dvt Ordering Physician: MARBIN KEITH Performed By: Adilia Arias Right Sided Venous Evaluation Normal vessel filling wall to wall, compression and augmentation as well as Colour flow down to the infrageniculate veins. Left Sided Venous Evaluation Normal vessel filling wall to wall, compression and augmentation as well as Colour flow down to the infrageniculate veins. Interpretation Summary No duplex evidence of DVT or obstruction in the bilateral lower extremities. : MARBIN KEITH > Hamilton Cole
== END 2017-05-18 21:00 | disposition home or self-care (01) ==
LOC: ER 17:00
DX: M25.571 Pain in right ankle and joints of right foot (principal); M25.471 Effusion, right ankle
CPT/HCPCS: 93970; 99284

== ENCOUNTER 2017-08-29 18:55 | Emergency (ER) | payer OTHER, BC ==
[2017-08-29 19:02] VITALS: BP 126/89
--- NOTE | 2017-08-29 19:23 | RADIOLOGY REPORT (SQ) ---
EXAM DESCRIPTION: WRIST LEFT 3 VIEWS COMPLETED DATE/TIME: 08/29/2017 7:08 pm REASON FOR STUDY: pain s/p fall COMPARISON: 03/03/2016 NUMBER OF VIEWS: Three views. TECHNIQUE: AP, lateral, and oblique radiographic images acquired of the left wrist. LIMITATIONS: None. FINDINGS: MINERALIZATION: Normal. BONES: No acute fracture or dislocation. No worrisome bone lesions. Normal alignment. SOFT TISSUES: No soft tissue swelling. No foreign body. OTHER: No other significant finding. IMPRESSION: NEGATIVE STUDY OF THE LEFT WRIST. NO RADIOGRAPHIC EVIDENCE OF ACUTE INJURY. TECHNICAL DOCUMENTATION: JOB ID: [id number] [employer]- All Rights Reserved Reading location - IP/workstation name: [email or web address]
--- NOTE | 2017-08-29 19:37 | ER Document Report ---
ED General - General Chief Complaint: L wrist injury Stated Complaint: FALL/WRIST PAIN Time Seen by Provider: 08/29/17 19:28 Mode of Arrival: Ambulatory Information source: Patient Notes: 32-year-old female presents with complaints of left wrist pain and inability to move it secondary to pain and stiffness after striking it on a corner of a desk is prior to arrival TRAVEL OUTSIDE OF THE [place] IN LAST 30 DAYS: No - HPI Onset: Just prior to arrival Onset/Duration: Sudden Quality of pain: Achy Severity: Mild Pain Level: 1 Associated symptoms: Body/muscle aches Exacerbated by: Movement Relieved by: Denies Similar symptoms previously: No Recently seen / treated by doctor: No - Related Data Allergies/Adverse Reactions: No Known Allergies Allergy (Verified 05/18/17 17:38) Past Medical History - Social History Smoking Status: Never Smoker Cigarette use (# per day): No Chew tobacco use (# tins/day): No Smoking Education Provided: No Family History: CAD, CVA, DM, Hyperlipidemia, Hypertension, Malignancy, Thyroid Disfunction Pulmonary Medical History: Reports: Hx Asthma - As a child none now Renal/ Medical History: Denies: Hx Peritoneal Dialysis GI Medical History: Reports: Hx Diverticulitis Musculoskeltal Medical History: Reports Hx Arthritis, Reports Hx Musculoskeletal Deformity, Reports Hx Musculoskeletal Trauma Psychiatric Medical History: Reports: Hx Anxiety, Hx Depression Traumatic Medical History: Reports: Hx Fractures - ribs Past Surgical History: Reports: Hx Oral Surgery - [place] teeth, Other - scalp surgery attached as a child large dog tore off to 60% - Immunizations Immunizations up to date: No Hx Diphtheria, Pertussis, Tetanus Vaccination: No Review of Systems - Review of Systems Notes: REVIEW OF SYSTEMS: CONSTITUTIONAL : Denies fever, chills, or sweats. Denies recent illness. EENT: Denies eye, ear, throat, or mouth pain or symptoms. Denies nasal or sinus congestion or discharge. Denies throat, tongue, or mouth swelling or difficulty swallowing. CARDIOVASCULAR: Denies chest pain. Denies palpitations or racing or irregular heart beat. Denies ankle edema. RESPIRATORY: Denies cough, cold, or chest congestion. Denies shortness of breath, difficulty breathing, or wheezing. GASTROINTESTINAL: Denies abdominal pain or distention. Denies nausea, vomiting , or diarrhea. Denies blood in vomitus, stools, or per rectum. Denies black, tarry stools. Denies constipation. GENITOURINARY: Denies difficulty urinating, painful urination, burning, frequency, blood in urine, or discharge. FEMALE GENITOURINARY: Denies vaginal bleeding, heavy or abnormal periods, irregular periods. Denies vaginal discharge or odor. MUSCULOSKELETAL: Admits to left wrist pain SKIN: Denies rash, lesions or sores. HEMATOLOGIC : Denies easy bruising or bleeding. LYMPHATIC: Denies swollen, enlarged glands. NEUROLOGICAL: Denies confusion or altered mental status. Denies passing out or loss of consciousness. Denies dizziness or lightheadedness. Denies headache. Denies weakness or paralysis or loss of use of either side. Denies problems with gait or speech. Denies sensory loss, numbness, or tingling. Denies seizures. PSYCHIATRIC: Denies anxiety or stress. Denies depression, suicidal ideation, or homicidal ideation. ALL OTHER SYSTEMS REVIEWED AND NEGATIVE. PHYSICAL EXAMINATION: GENERAL: Well-appearing, well-nourished and in no acute distress. HEAD: Atraumatic, normocephalic. EYES: Pupils equal round and reactive to light, extraocular movements intact, conjunctiva are normal. ENT: Nares patent, oropharynx clear without exudates. Moist mucous membranes. NECK: Normal range of motion, supple without lymphadenopathy LUNGS: Breath sounds clear to auscultation bilaterally and equal. No wheezes rales or rhonchi. HEART: Regular rate and rhythm without murmurs ABDOMEN: Soft, nontender, nondistended abdomen. No guarding, no rebound. No masses appreciated. Female : deferred Musculoskeletal: Limited range of motion secondary to pain mild edema noted at the wrist, there is no abrasions there is an old scab noted there is mild edema full range of motion of the digits NEUROLOGICAL: Cranial nerves grossly intact. Normal speech, normal gait. Normal sensory, motor exams PSYCH: Normal mood, normal affect. SKIN: Warm, Dry, normal turgor, no rashes or lesions noted. Dictation was performed using [employer] recognition software Physical Exam - Vital signs Vitals: Temp Pulse Resp BP Pulse Ox 97.8 F 98 17 126/89 H 100 08/29/17 19:01 08/29/17 19:01 08/29/17 19:01 08/29/17 19:01 08/29/17 19:01 Course - Re-evaluation Re-evalutation: 08/29/17 20:54 X-ray noted no acute fracture, a splint will be placed for comfort but otherwise the patient will be given anti-inflammatories and stable for discharge with close follow-up with primary care physician After performing a Medical Screening Examination, I estimate there is LOW risk for INTRACRANIAL HEMORRHAGE, UNSTABLE SPINE FRACTURE, CENTRAL CORD SYNDROME, CAUDA EQUINA, THORACIC AORTIC DISSECTION, PNEUMOTHORAX, PERFORATED BOWEL, RUPTURED ABDOMINAL AORTIC ANEURYSM, ACUTE TENDON RUPTURE, COMPARTMENT SYNDROME, or OPEN FRACTURE, thus I consider the discharge disposition reasonable. Also, there is no evidence or peritonitis, sepsis, or toxicity. I have reevaluated this patient multiple times and no significant life threatening changes are noted. The patient and I have discussed the diagnosis and risks, and we agree with discharging home to follow-up with their primary doctor with the understanding that symptoms and presentations can change. We also discussed returning to the Emergency Department immediately if new or worsening symptoms occur. We have discussed the symptoms which are most concerning (e.g., bloody stool, fever, changing or worsening pain, vomiting) that necessitate immediate return. - Vital Signs Vital signs: Temp Pulse Resp BP Pulse Ox 97.8 F 98 17 126/89 H 100 08/29/17 19:01 08/29/17 19:01 08/29/17 19:01 08/29/17 19:01 08/29/17 19:01 - Diagnostic Test Radiology reviewed: Image reviewed, Reports reviewed - no acute fractures Discharge - Discharge Clinical Impression: Left wrist injury Qualifiers: Encounter type: initial encounter Qualified Code(s): S69.92XA - Unspecified injury of left wrist, hand and finger(s), initial encounter Wrist pain Qualifiers: Laterality: left Qualified Code(s): M25.532 - Pain in left wrist Condition: Stable Disposition: HOME, SELF-CARE Instructions: Wrist Sprain ([facility]) Prescriptions: Naproxen [Naprosyn] 500 mg PO BID #20 tablet Forms: Return to Work
== END 2017-08-29 19:42 | disposition home or self-care (01) ==
LOC: ER 18:55
DX: S69.92XA Unspecified injury of left wrist, hand and finger(s), initial encounter (principal); W22.03XA Walked into furniture, initial encounter
CPT/HCPCS: 99283; 73110; L3908